=== PATIENT | male | born 1970 | race Caucasian/White ===

== ENCOUNTER 2018-07-22 12:21 | Emergency (ER) | payer OTHER ==
[~2018-07-22] VITALS: Ht 182.9 cm; Wt 117.9 kg
[2018-07-22 12:33] VITALS: BP 153/100
--- NOTE | 2018-07-22 13:25 | RAD ---
Examination: 3 views of the left ankle HISTORY: History of fall one week back COMPARISON: None available. FINDINGS: There is mild soft tissue swelling identified lateral to lateral malleolus. There is cortical step-off identified in the distal aspect of the lateral malleolus posteriorly best visualized on the lateral view likely fracture. Small calcaneal enthesophyte identified in the posterior calcaneus and in the inferior calcaneus. IMPRESSION: 1. Mild cortical step-off identified in the posterior aspect of the lateral malleolus likely fracture with surrounding mild soft tissue swelling. Electronically signed by: Dm Enriquez MD (07/22/2018 1:22 PM) [facility]
[2018-07-22] MEDS ORDERED: HYDR-3165 PO (13:41)
--- NOTE | 2018-07-22 13:42 | PHYS DOC ---
Past History Past Medical History: Hypertension, Other Past Surgical History: Other Alcohol Use: Sober Drug Use: None Adult General Chief Complaint Chief Complaint: LOWEREXTREMITY INJURY HPI HPI 47-year-old male presents with ankle pain. The patient was at work and going down some wooden stairs and had ice on them and he slipped down 3 or 4 stairs. He immediately had pain in his left ankle. He is able to walk, but is very painful. Her significant swelling over the lateral malleolus. She denies any other injuries or complaints. The patient has fractured this ankle in the past and required surgical repair. Denies fever or chills. Review of Systems Review of Systems Constitutional: Denies fever or chills [] Eyes: Denies change in visual acuity, redness, or eye pain [] HENT: Denies nasal congestion or sore throat [] Respiratory: Denies cough or shortness of breath [] Cardiovascular: No additional information not addressed in HPI [] GI: Denies abdominal pain, nausea, vomiting, bloody stools or diarrhea [] : Denies dysuria or hematuria [] Musculoskeletal: Ankle pain[] Integument: Denies rash or skin lesions [] Neurologic: Denies headache, focal weakness or sensory changes [] Endocrine: Denies polyuria or polydipsia [] All other systems were reviewed and found to be within normal limits, except as documented in this note. Current Medications Current Medications Current Medications Medications (Trade) Dose Ordered Sig/Ryan Start Time Stop Time Status Last Admin Dose Admin Acetaminophen/ Hydrocodone Bitart (Lortab 5/325) 1 tab 1X ONCE 07/22/18 13:45 07/22/18 13:46 UNV Allergies Allergies Allergies Coded Allergies Type Severity Reaction Last Updated Verified pseudoephedrine Allergy Severe "MY NECK SWELLS UP." 03/07/15 Yes Physical Exam Physical Exam Constitutional: Well developed, well nourished, no acute distress, non-toxic appearance. [] HENT: Normocephalic, atraumatic, bilateral external ears normal, oropharynx moist, no oral exudates, nose normal. [] Eyes: PERRLA, EOMI, conjunctiva normal, no discharge. [] Neck: Normal range of motion, no tenderness, supple, no stridor. [] Cardiovascular:Heart rate regular rhythm, no murmur [] Lungs & Thorax: Bilateral breath sounds clear to auscultation [] Abdomen: Bowel sounds normal, soft, no tenderness, no masses, no pulsatile masses. [] Skin: Warm, dry, no erythema, no rash. [] Back: No tenderness, no CVA tenderness. [] Extremities: Left lateral ankle pain with palpation, significant swelling, no ecchymosis.[] Neurologic: Alert and oriented X 3, normal motor function, normal sensory function, no focal deficits noted. [] Psychologic: Affect normal, judgement normal, mood normal. [] Current Patient Data Vital Signs Vital Signs Date Time Temp Pulse Resp B/P (MAP) Pulse Ox O2 Delivery O2 Flow Rate FiO2 07/22/18 12:33 102 20 97 Room Air EKG EKG [] Radiology/Procedures Radiology/Procedures [] Impressions: Examination: 3 views of the left ankle HISTORY: History of fall one week back COMPARISON: None available. FINDINGS: There is mild soft tissue swelling identified lateral to lateral malleolus. There is cortical step-off identified in the distal aspect of the lateral malleolus posteriorly best visualized on the lateral view likely fracture. Small calcaneal enthesophyte identified in the posterior calcaneus and in the inferior calcaneus. IMPRESSION: 1. Mild cortical step-off identified in the posterior aspect of the lateral malleolus likely fracture with surrounding mild soft tissue swelling. Electronically signed by: Dm Enriquez MD (07/22/2018 1:22 PM) [facility] DICTATED AND SIGNED BY: DM ENRIQUEZ MD DATE: 07/22/18 1324 CC: UZMA GARCIA DO; MARYAM ELIZABETH DO Course & Med Decision Making Course & Med Decision Making Pertinent Labs and Imaging studies reviewed. (See chart for details) The patient does have a fracture of the lateral malleolus on the left ankle. We will place him in a splint and he will follow-up with his PCP and likely orthopedics tomorrow. I will discharge him with Argenta 10/13 for pain. He is stable for discharge at this time. [] Dragon Disclaimer Dragon Disclaimer This electronic medical record was generated, in whole or in part, using a voice recognition dictation system. Departure Departure: Impression: Primary Impression: Closed fracture of left lateral malleolus Disposition: 01 HOME, SELF-CARE Condition: STABLE Referrals: MARYAM ELIZABETH DO (PCP) Patient Instructions: Ankle Fracture, [id number] Scripts Hydrocodone Bit/Acetaminophen (NORCO 5-325 TABLET) 1 Each Tablet 1 TAB PO PRN Q6HRS PRN for PAIN, #10 TAB 0 Refills Prov: UZMA GARCIA DO 07/22/18 Problem Qualifiers Primary Impression: Closed fracture of left lateral malleolus Encounter type: initial encounter Fracture alignment: nondisplaced Qualified Codes: S82.65XA - Nondisplaced fracture of lateral malleolus of left fibula, initial encounter for closed fracture UZMA GARCIA DO Jul 22, 2018 13:42
[2018-07-22] MEDS ORDERED: HYDROcodone/APAP 5/325MG 1 TAB TABLET PO ONE (13:45)
== END 2018-07-22 14:00 | disposition home or self-care (01) ==
LOC: ER 12:21
DX: S82.65XA Nondisplaced fracture of lateral malleolus of left fibula, initial encounter for closed fracture (principal); I10 Essential (primary) hypertension; Z88.8 Allergy status to other drugs, medicaments and biological substances; W00.1XXA Fall from stairs and steps due to ice and snow, initial encounter; Y93.89 Activity, other specified; Y92.89 Other specified places as the place of occurrence of the external cause; Y99.8 Other external cause status
CPT/HCPCS: 29515; 73610; 99283

== ENCOUNTER 2018-10-12 11:29 | Emergency (ER) | payer OTHER ==
[~2018-10-12] VITALS: Ht 182.9 cm; Wt 126.6 kg
[~2018-10-12 11:29] MED LIST: HYDR-3165 PO
[2018-10-12] MEDS ORDERED: ALLO300T PO (11:58)
[2018-10-12] MEDS ORDERED: COLC0.6T34 PO (11:58)
[2018-10-12] MEDS ORDERED: TRAM50TA PO (11:58)
[2018-10-12] MEDS ORDERED: MELO15TA23 PO (11:58)
--- NOTE | 2018-10-12 11:58 | PHYS DOC ---
Past History Past Medical History: Arthritis, Hypertension, Other Past Surgical History: No Surgical History Smoking: Non-smoker Alcohol Use: None Drug Use: None Adult General Chief Complaint Chief Complaint: FOOT INJURY PAIN HPI HPI Patient is a 48-year-old male presents with left foot pain. He has had no tr auma. He does have a history of gout, usually in his right foot however it is also been in his left wrist. Denies any numbness. Notes that there is some swelling in his right great toe as well as the metatarsal phalangeal joint. Nothing seems to make it that her or worse. Patient ran out of his meloxicam yesterday. He was recently taken off of his gout medicines by his doctors at the [place]. Denies any fever. Pain has been present for a couple days. Patient reports eating pork 3 nights ago. Eyes any other red meat or shellfish ingestion recently.[] Review of Systems Review of Systems Constitutional: Denies fever or chills [] Eyes: Denies change in visual acuity, redness, or eye pain [] HENT: Denies nasal congestion or sore throat [] Respiratory: Denies cough or shortness of breath [] Cardiovascular: No chest pain or palpitations[] GI: Denies abdominal pain, nausea, vomiting, bloody stools or diarrhea [] : Denies dysuria or hematuria [] Musculoskeletal: Denies back pain, see history of present illness[] Integument: Denies rash or skin lesions [] Neurologic: Denies headache, focal weakness or sensory changes [] Endocrine: Denies polyuria or polydipsia [] All other systems were reviewed and found to be within normal limits, except as documented in this note. Allergies Allergies Allergies Coded Allergies Type Severity Reaction Last Updated Verified pseudoephedrine Allergy Severe "MY NECK SWELLS UP." 03/07/15 Yes Physical Exam Physical Exam Constitutional: Well developed, well nourished, no acute distress, non-toxic appearance. [] HENT: Normocephalic, atraumatic, bilateral external ears normal, oropharynx moist, no oral exudates, nose normal. [] Eyes: PERRLA, EOMI, conjunctiva normal, no discharge. [] Neck: Normal range of motion, no tenderness, supple, no stridor. [] Cardiovascular:Heart rate regular rhythm, no murmur [] Lungs & Thorax: Bilateral breath sounds clear to auscultation [] Abdomen: Not examined. [] Skin: Warm, dry, no erythema, no rash. [] Back: No tenderness, no CVA tenderness. [] Extremities: Left foot has erythema and edema at the first metatarsal phalangeal joint region. Full active range of motion. Distal neurovascularly intact. No ankle tenderness. No joint laxity in the ankle or the foot/toe. The other 3 extremities show: No tenderness, no cyanosis, no clubbing, ROM intact, no edema. [] Neurologic: Alert and oriented X 3, normal motor function, normal sensory function, no focal deficits noted. [] Psychologic: Affect normal, judgement normal, mood normal. [] EKG EKG [] Radiology/Procedures Radiology/Procedures [] Course & Med Decision Making Course & Med Decision Making Pertinent Labs and Imaging studies reviewed. (See chart for details) Jamey decision making: Believe the patient to have an acute gout flare up since he has had a present similarly in his other foot, and that there has been no tra xochilt. Will start patient back on his gout medicines as well as treat him in the acute phase. Also discussed at length regarding diet to include tart cherries to help prevent gout. There is no evidence of osteomyelitis. No evidence of a fracture or dislocation at this time.[] Dragon Disclaimer Dragon Disclaimer This electronic medical record was generated, in whole or in part, using a voice recognition dictation system. Departure Departure: Impression: Primary Impression: Gout Disposition: 01 HOME, SELF-CARE Condition: IMPROVED Referrals: MARYAM ELIZABETH DO (PCP) Follow-up in 2 days Patient Instructions: Gout Additional Instructions: Drink plenty of water. Avoid red meats, shellfish, and pork. A vegetarian diet can help prevent future gouty attacks. Adding tart cherries to your diet can also help prevent future gout flareups. Follow-up with your doctor in 2 days. Return to the ER if worsening pain or any other concerns. Scripts Tramadol Hcl (TRAMADOL HCL) 50 Mg Tablet 50 MG PO PRN Q6HRS PRN for PAIN, #20 TAB Prov: NATALIYA LOPEZ DO 10/12/18 Meloxicam (MELOXICAM) 15 Mg Tablet 1 TAB PO DAILY for pain, #30 TAB Prov: NATALIYA LOPEZ DO 10/12/18 Colchicine (COLCRYS) 0.6 Mg Tablet 0.6 MG PO as directed for gout flare, #3 TAB 2 tablets now then 1 tablet in an hour Prov: NATALIYA LOPEZ DO 10/12/18 Allopurinol (ALLOPURINOL) 300 Mg Tablet 1 TAB PO DAILY for gout, #30 TAB 0 Refills Prov: NATALIYA LOPEZ DO 10/12/18 Problem Qualifiers Primary Impression: Gout Gout site: foot Gout etiology: unspecified cause Chronicity: unspecified Laterality: left Qualified Codes: M10.9 - Gout, unspecified NATALIYA LOEPZ DO October 12, 2018 11:58
[2018-10-12 12:00] VITALS: BP 140/87
== END 2018-10-12 12:02 | disposition home or self-care (01) ==
LOC: ER 11:29
DX: M10.9 Gout, unspecified (principal); M79.672 Pain in left foot; I10 Essential (primary) hypertension; Z88.8 Allergy status to other drugs, medicaments and biological substances
CPT/HCPCS: 99283

== ENCOUNTER 2019-08-01 12:36 | Emergency (ER) | payer OTHER ==
[~2019-08-01] VITALS: Ht 365.8 cm; Wt 147.0 kg
[~2019-08-01 12:36] MED LIST changes: +ALLO300T PO; +COLC0.6T34 PO; +MELO15TA23 PO; +TRAM50TA PO
[2019-08-01 12:51] VITALS: BP 159/95
[2019-08-01] MEDS ORDERED: INDO50CA15 PO (12:56)
[2019-08-01] MEDS ORDERED: COLC0.6T34 PO (12:56)
--- NOTE | 2019-08-01 12:56 | PHYS DOC ---
Past History Past Medical History: Arthritis, Hypertension, Other Past Surgical History: No Surgical History Smoking: Non-smoker Alcohol Use: None Drug Use: None Adult General Chief Complaint Chief Complaint: HAND PROBLEM HPI HPI Patient complains of left hand pain and swelling for the past 3 to 4 days. Cons istent with previous gout flares. Went to his primary care physician's office and was given Celebrex and Tylenol 3 which she states is not working. No fever chills reported. No injury. No skin breakdown. Patient has been treated with colchicine and indomethacin in the past with success. Review of Systems Review of Systems All other systems were reviewed and found to be within normal limits, except as documented in this note. Allergies Allergies Allergies Coded Allergies Type Severity Reaction Last Updated Verified pseudoephedrine Allergy Severe "MY NECK SWELLS UP." 03/07/15 Yes Physical Exam Physical Exam Constitutional: Well developed, well nourished, no acute distress, non-toxic appearance. [] HENT: Normocephalic, atraumatic, bilateral external ears normal, oropharynx moist, no oral exudates, nose normal. [] Eyes: PERRLA, EOMI, conjunctiva normal, no discharge. [] Neck: Normal range of motion, no tenderness, supple, no stridor. [] Cardiovascular:Heart rate regular rhythm, no murmur [] Lungs & Thorax: Bilateral breath sounds clear to auscultation [] Abdomen: Bowel sounds normal, soft, no tenderness, no masses, no pulsatile masses. [] Skin: Warm, dry, no erythema, no rash. [] Back: No tenderness, no CVA tenderness. [] Extremities: Normal except for the left hand which has mild to moderate swelling with some warmth. No evidence of skin breakdown. Neurologic: Alert and oriented X 3, normal motor function, normal sensory function, no focal deficits noted. [] Psychologic: Affect normal, judgement normal, mood normal. [] EKG EKG [] Radiology/Procedures Radiology/Procedures [] Course & Med Decision Making Course & Med Decision Making Pertinent Labs and Imaging studies reviewed. (See chart for details) Patient seen for left hand swelling consistent with previous gout flares. I will start him on indomethacin and colchicine. Patient is instructed to follow- up with his doctor within 48 hours if his symptoms are not improving. Dragon Disclaimer Dragon Disclaimer This electronic medical record was generated, in whole or in part, using a voice recognition dictation system. Departure Departure: Impression: Primary Impression: Gout Disposition: 01 HOME, SELF-CARE Condition: STABLE Referrals: MARYAM ELIZABETH DO (PCP) Patient Instructions: Gout Scripts Indomethacin (INDOMETHACIN) 50 Mg Capsule 1 CAP PO TID for Gout for 10 Days, #30 CAP 0 Refills with food and shortest duration possible Prov: EZEQUIEL COLLINS DO 08/01/19 Colchicine (COLCRYS) 0.6 Mg Tablet 0.6 MG PO UD for Gout, #3 TAB Take 2 tabs now and then 1 in 1 hour. Prov: EZEQUIEL COLLINS DO 08/01/19 EZEQUIEL COLLINS DO Aug 01, 2019 12:56
== END 2019-08-01 13:01 | disposition home or self-care (01) ==
LOC: ER 12:36
DX: M10.9 Gout, unspecified (principal); M79.642 Pain in left hand; M19.90 Unspecified osteoarthritis, unspecified site; I10 Essential (primary) hypertension; Z88.8 Allergy status to other drugs, medicaments and biological substances
CPT/HCPCS: 99283

== ENCOUNTER 2019-09-22 09:08 | Emergency (ER) | payer OTHER ==
[~2019-09-22] VITALS: Ht 182.9 cm; Wt 147.0 kg
[2019-09-22 09:08] VITALS: BP 153/104
[~2019-09-22 09:08] MED LIST changes: +INDO50CA15 PO
[2019-09-22] MEDS ORDERED: ACET-704 PO (09:38)
--- NOTE | 2019-09-22 09:38 | PHYS DOC ---
Past History Past Medical History: Arthritis, Hypertension Past Surgical History: No Surgical History Smoking: Non-smoker Alcohol Use: None Drug Use: None General Adult EDM: Chief Complaint: FOOT INJURY PAIN HPI: HPI: 48-year-old male presents with right foot pain primarily to the outer aspect. Patient reports he started a new job and has been walking at least 20,000 steps every day. Patient reports was initially seen at [place] by physical therapist and given cream to place on the foot and stretches to do every night. Patient reports pain has continued despite treatment. Denies other known trauma. Denies fever or chills. Does report some swelling primarily when he is up on his feet. Reports is able to stand with some slight discomfort but pain is significantly worse with walking. Review of Systems: Review of Systems: Constitutional: Denies fever or chills Eyes: Denies redness or eye pain HENT: Denies nasal congestion or sore throat Respiratory: Denies cough or shortness of breath Cardiovascular: Denies chest pain or palpitations GI: Denies abdominal pain, nausea, or vomiting : Denies dysuria or hematuria Musculoskeletal: Denies back pain; reports right foot pain and swelling Integument: Denies rash or skin lesions Neurologic: Denies headache, focal weakness or sensory changes Complete systems were reviewed and found to be within normal limits, except as documented in this note. Allergies: Allergies: Allergies Coded Allergies Type Severity Reaction Last Updated Verified pseudoephedrine Allergy Severe "MY NECK SWELLS UP." 03/07/15 Yes Physical Exam: PE: Constitutional: Well developed, well nourished, no acute distress, non-toxic appearance HENT: Normocephalic, atraumatic Eyes: Conjunctiva normal, no discharge Neck: Normal range of motion, no tenderness, supple Cardiovascular: Right foot DP and PT +2, CR < 2 sec Lungs & Thorax: No respiratory distress, equal chest rise and fall Skin: Warm, dry, no erythema, no rash Extremities: Tenderness to palpation or right 5th metatarsal, trace edema, no tenderness to plantar aspect Neurologic: Alert and oriented X 3, no focal deficits noted Psychologic: Affect normal, judgment normal Current Patient Data: Vital Signs: Vital Signs Date Time Temp Pulse Resp B/P (MAP) Pulse Ox O2 Delivery O2 Flow Rate FiO2 09/22/19 09:08 97.9 88 18 153/104 (120) 97 Room Air EKG: EKG: [] Radiology/Procedures: Radiology/Procedures: PROCEDURE: FOOT RIGHT 3V STUDY DATE: 09/22/2019 CLINICAL INDICATION / HISTORY: Fifth metatarsal pain. TECHNIQUE: AP, lateral and oblique views of the right foot. COMPARISON: Right foot x-rays of 03/07/2015 FINDINGS: No fracture or dislocation is identified. The bone density is normal. The joint space widths are maintained, and there are no erosions to suggest an inflammatory arthropathy. No soft tissue abnormality is seen. Small Achilles enthesophyte and calcaneal spur are noted. IMPRESSION: No acute osseous abnormality. Electronically signed by: Millie Banuelos MD (09/22/2019 9:34 AM) [id number] Course & Med Decision Making: Course & Med Decision Making Pertinent Imaging studies reviewed. (See chart for details) Patient presents with report of right lateral foot pain without known trauma. Limb neurovascularly intact. Ice applied. X-ray obtained without acute fracture or dislocation. Signs of arthritis appreciated. Postop shoe applied. K-[facility] report obtained. Last Rx for controlled substance was July for Tylenol #3. Patient stable for discharge with outpatient follow-up with PCP/podiatry. Podiatry referral provided. Discussed findings and plan with patient, who acknowledges understanding and agreement. Tabitha Disclaimer: Tabitha Disclaimer: This electronic medical record was generated, in whole or in part, using a voice recognition dictation system. Splinting Splinting : Location: Right foot Pre-Made Type: Post op shoe Pre-Proc Neuro Vasc Exam: normal Post-Proc Neuro Vasc Exam: normal, unchanged from pre-exam Departure Departure: Impression: Primary Impression: Foot pain, right Disposition: 01 HOME, SELF-CARE Condition: STABLE Referrals: PCP,HALEY (PCP) RUTH NUÑEZ DPM Patient Instructions: Foot Sprain, Hard-Soled Shoe Scripts Acetaminophen With Codeine (TYLENOL WITH CODEINE #3 TABLET) 1 Each Tablet 1 TAB PO PRN Q6HRS PRN for pain MDD 4 Tablet(s), #10 TAB 0 Refills Prov: CARLOS DORAN DO 09/22/19 CARLOS DORAN DO September 22, 2019 09:38
== END 2019-09-22 09:45 | disposition home or self-care (01) ==
LOC: ER 09:08
DX: M79.671 Pain in right foot (principal); R22.41 Localized swelling, mass and lump, right lower limb; M19.90 Unspecified osteoarthritis, unspecified site; I10 Essential (primary) hypertension; Z88.8 Allergy status to other drugs, medicaments and biological substances
CPT/HCPCS: 73630; 99283